=== PATIENT | male | born 1930 | race Two or more races ===

== ENCOUNTER 2020-02-04 10:06 | Inpatient (IN) | payer MEDICARE, OTHER ==
[~2020-02-04] VITALS: Ht 170.2 cm; Wt 70.8 kg
--- NOTE | 2020-02-04 10:20 | NUR ---
BIB ra 41 frm snf c/o more altered than normal. Patient a/ox1, opens eyes, agitated during care at times, breathing even and unlabored, no sob noted. A.fib heart rhythm on the monitor. Dr. Bullock aware.
--- NOTE | 2020-02-04 10:25 | NUR ---
Dr. Bullock at bedside for eval.
--- NOTE | 2020-02-04 10:30 | NUR ---
IV LINE ESTABLISHED, BLOOD DRAWN AND SENT TO LAB.
[2020-02-04 10:31] LABS: BASOPHILS % (AUTO) 0.6 % (0.0-2.0); EOSINOPHILS % (AUTO) 0.2 % (0.0-6.0); HEMATOCRIT 44 % (39-51); HEMOGLOBIN 14.8 g/dL (13.5-17.5); LYMPHOCYTES # (AUTO) 2.6 /CMM (0.8-4.8); LYMPHOCYTES % (AUTO) 41.8 % (20.0-44.0); MEAN CORPUSCULAR HGB CONC 34 g/dl (31.0-36.0); MEAN CORPUSCULAR VOLUME 95 fL (80-96); MONOCYTES # (AUTO) 0.5 /CMM (0.1-1.30); MONOCYTES % (AUTO) 7.6 % (2.0-12.0); NEUTROPHILS # (AUTO) 3.1 /CMM (1.8-8.9); NEUTROPHILS % (AUTO) 49.8 % (43.0-81.0); PLATELET COUNT (AUTO) 175 /CMM (150-450); RED BLOOD CELL COUNT(AUTO) 4.69 MIL/uL (4.5-6.0); WHITE BLOOD COUNT (AUTO) 6.1 K/uL (4.3-11.0)
[2020-02-04] MEDS ORDERED: POTA20TA83 PO (10:39)
[2020-02-04] MEDS ORDERED: BISA10SU61 RC (10:39)
[2020-02-04] MEDS ORDERED: MULT-447 PO (10:39)
[2020-02-04] MEDS ORDERED: METO-295 PO (10:39)
[2020-02-04] MEDS ORDERED: FURO-144 PO (10:39)
[2020-02-04] MEDS ORDERED: QUET25TA PO (10:39)
[2020-02-04] MEDS ORDERED: TAMS-12 PO (10:39)
[2020-02-04] MEDS ORDERED: ASCO500C17 PO (10:39)
[2020-02-04] MEDS ORDERED: ASPI-1169 PO (10:39)
[2020-02-04] MEDS ORDERED: NA P133E RC (10:39)
[2020-02-04] MEDS ORDERED: TUMERIC PO (10:39)
[2020-02-04] MEDS ORDERED: METO25TA6 PO (10:39)
[2020-02-04] MEDS ORDERED: APIX2.5T PO (10:39)
[2020-02-04] MEDS ORDERED: ALLO100T PO (10:39)
[2020-02-04] MEDS ORDERED: AMIN887L PO (10:39)
[2020-02-04] MEDS ORDERED: MAGN400O6 PO (10:39)
[2020-02-04 10:40] LABS: CALCIUM, SERUM 8.9 mg/dL (8.5-10.1); CREATININE 1.2 mg/dL (0.6-1.3)
[2020-02-04 10:46] LABS: BILIRUBIN,DIRECT 4.3 mg/dL (0.0-0.2); BILIRUBIN,TOTAL 5.5 mg/dL (0.2-1.0); TOTAL PROTEIN, SERUM 6.1 g/dL (6.4-8.2)
--- NOTE | 2020-02-04 10:55 | NUR ---
URINE OBTAINED VIA STRAIGHT CATHETER, SAMPLE AND COVID SWAB SENT TO LAB.
[2020-02-04] MEDS ORDERED: IV NS 0.9% 1,000 ML BAG IV ONE (11:00)
[2020-02-04] MEDS ORDERED: DILTIAZEM HCL 25 MG IV IV ONE (11:00)
[2020-02-04 11:03] LABS: BILIRUBIN,URINE MODERATE (NEGATIVE); BLOOD, URINE Trace-lysed Ery/uL (NEGATIVE); COLOR,URINE YELLOW (YELLOW); LEUKOCYTE ESTERASE ,URINE Negative (NEGATIVE); NITRITE, URINE Negative (NEGATIVE); PROTEIN,URINE Negative (NEGATIVE); UGLUCOSE Negative (NEGATIVE)
--- NOTE | 2020-02-04 11:03 | NUR ---
CALLED NURSING SUP FOR TELE BED.
[2020-02-04 11:12] LABS: B-TYPE NATRIURETIC PEPTIDE 9321 PG/ML (0-125)
--- NOTE | 2020-02-04 11:25 | NUR ---
call from lab, covid positive
[2020-02-04 11:28] LABS: BACTERIA,URINE Few /HPF (None Seen); RBC,URINE 0-3 /HPF (0-2); SQUAMOUS EPITHELIAL CELL,UR Moderate /HPF (None Seen); WBC,URINE 0-2 /HPF (0-3)
[2020-02-04] MEDS ORDERED: DILTIAZEM HCL 25 MG IV ONE (11:38)
[2020-02-04] MEDS ORDERED: DEXAMETHASONE SOD PHOSPHATE 10 MG/ML VIAL ONE (11:38)
[2020-02-04 11:53] LABS: SERUM AMMONIA 7 umol/L (11-32)
[2020-02-04] MEDS ORDERED: DEXAMETHASONE SOD PHOSPHATE 10 MG/ML VIAL IV ONE (12:00)
[2020-02-04] MEDS ORDERED: AZITHROMYCIN 500 MG in IV D5W 250 ML IV ONE (12:00)
--- NOTE | 2020-02-04 12:38 | NUR ---
COVID SWAB SENT.
[2020-02-04] MEDS ORDERED: MORPHINE SULFATE INJ 2 MG/ML DISP.SYRIN IV PRN (14:00)
[2020-02-04] MEDS ORDERED: MAGNESIUM HYDROXIDE 30 ML UDC PO PRN (14:00)
[2020-02-04] MEDS ORDERED: Z GUARD REMEDY 2 OZ OINT TP PRN (14:00)
[2020-02-04] MEDS ORDERED: ONDANSETRON HCL/PF 4 MG/2 ML VIAL IVP PRN (14:00)
[2020-02-04] MEDS ORDERED: MAG HYDROX/AL HYDROX/SIMETH 30 ML UDC PO PRN (14:00)
[2020-02-04] MEDS ORDERED: HYDROCODONE/APAP 5/325MG TABLET PO PRN (14:00)
[2020-02-04] MEDS ORDERED: ACETAMINOPHEN 325 MG TABLET PO PRN (14:00)
--- NOTE | 2020-02-04 15:58 | NUR ---
report given to radha mckinney. Addendum: 02/04/20 at 1633 by ROEL correction: RICHARD MCKINNEY.
--- NOTE | 2020-02-04 16:33 | NUR ---
patient transferred to room 117-1 via acls protocol. No distress noted. Needs attended.
--- NOTE | 2020-02-04 16:45 | NUR ---
DIRECTOR REPORT NOTE PT RECEIVED IN STABLE CONDITION, BUT OBTUNDED. PT IS COVID POSITIVE RAPID, PCR PENDING. PT OPENS EYES TO TACTILE STIMULI. PT ON NC 2LPM SPO2 99%, NO SIGNS OF RESP DISTRESS OR SOB, BREATHING UNLABORED AND EVEN. PT HAS RT AC #18 FLUSHED AND PATENT. PT ON TELEMONITOR READING AFIB WITH HR IN THE 130s. PT SAFETY MEASURES IN PLACE- BED LOCKED AND IN LOWEST POSITION, SR UP x2, BED ALARM ON, CALL LIGHT WITHIN REACH
--- NOTE | 2020-02-04 16:45 | NUR ---
RN NOTE SPOKE TO PT'S SON REGARDING PT'S STATUS. ANSWERED ALL QUESTIONS FOR SON TO HIS SATISFACTION.
[2020-02-04] MEDS ORDERED: METOPROLOL TARTRATE 25 MG TABLET PO SCH (17:00)
[2020-02-04] MEDS: APIXABAN 2.5 MG TABLET PO SCH (17:27)
--- NOTE | 2020-02-04 19:00 | NUR ---
RN CLOSING NOTE NO CHANGES TO PT STATUS. PT IS STABLE. SAFETY MEASURES IN PLACE. WILL ENDORSE RULA TO ONCOMING NURSE
[2020-02-04 20:00] VITALS: BP 115/82
--- NOTE | 2020-02-04 20:00 | NUR ---
FELT PULLER NOTES RECEIVED PATIENT IN BED ALERT ORIENTED X2. ON O2 VIA NC AT 4LPM SATING AT 98%. NO SIGNS OF DISTRESS NOTED. COUGH NOTED. ON TELE MONITOR, AFIB HR 130S. BODY CHECKED DONE, SKIN INTACT, NOTED WITH PITTING EDEMA + 4 ON LEFT FOOT, ELEVATED WITH PILLOW. RIGHT AC G18 PATENT AND INTACT, FLUSHED WITH NS NO SIGNS OF INFILTRATION, NO INFECTION NOTED. ALL SAFETY MEASURES IMPLEMENTED PER PROTOCOL, SIDE RAILS UP X 3. BED LOCKED IN LOWEST POSITION. CALL LIGHT WITHIN REACH.
[2020-02-04] MEDS: TAMSULOSIN 0.4 MG CAP.SR.24H PO SCH (22:23)
[2020-02-04] MEDS: IV NS 0.9% 1,000 ML IV PRN (22:25)
[2020-02-05] VITALS: BP 90/59
[2020-02-05 04:00] VITALS: BP 100/69
--- NOTE | 2020-02-05 06:45 | NUR ---
SERVICE ASSISTANT NOTES PATIENT IN BED SLEEPING, EASILY AROUSABLE BY VERBAL AND TOUCH STIMULI. NOT IN ANY ACUTE DISTRESS. CONTINUE ON O2 VIA NC AT 4LPM SATING AT 97%. NO SOB NOTED.ON TELE MONITOR SHOWING AFIB, HR 130S.. IVF NS INFUSING WELL, RUNNING AT 100 ML/HR. NO SIGNS OF INFILTRATION. REPOSITIONED Q2H. BOTH HEELS OFFLOADED WITH PILLOW. ALL SAFETY MEASURES IMPLEMENTED PER PROTOCOL, BED LOCKED IN LOWEST POSITION. SIDE RAILS UP X 3. CALL LIGHT WITHIN REACH AT ALL TIMES. WILL ENDORSE TO AM SHIFT NURSE FOR RULA
[2020-02-05 06:53] LABS: BASOPHILS % (AUTO) 0.2 % (0.0-2.0); HEMATOCRIT 43 % (39-51); HEMOGLOBIN 14.3 g/dL (13.5-17.5); LYMPHOCYTES # (AUTO) 1.5 /CMM (0.8-4.8); MEAN CORPUSCULAR HGB CONC 33 g/dl (31.0-36.0); MEAN CORPUSCULAR VOLUME 95 fL (80-96); MONOCYTES # (AUTO) 0.2 /CMM (0.1-1.30); MONOCYTES % (AUTO) 4.4 % (2.0-12.0); NEUTROPHILS # (AUTO) 2.1 /CMM (1.8-8.9); NEUTROPHILS % (AUTO) 56.4 % (43.0-81.0); PLATELET COUNT (AUTO) 176 /CMM (150-450); RED BLOOD CELL COUNT(AUTO) 4.55 MIL/uL (4.5-6.0); WHITE BLOOD COUNT (AUTO) 3.8 K/uL (4.3-11.0)
[2020-02-05 07:07] LABS: ALANINE AMINOTRANSFERASE 50 U/L (12-78); ALBUMIN 1.7 g/dL (3.4-5.0); ALKALINE PHOSPHATASE 298 U/L (46-116); ASPARTATE AMINOTRANSFERASE 46 U/L (15-37); BILIRUBIN,TOTAL 3.2 mg/dL (0.2-1.0); CALCIUM, SERUM 7.9 mg/dL (8.5-10.1); CARBON DIOXIDE 21 mmol/L (21-32); CHLORIDE 107 mmol/L (98-107); CREATININE 1.2 mg/dL (0.6-1.3); GLUCOSE 136 mg/dL (74-106); MAGNESIUM 2.3 mg/dL (1.8-2.4); POTASSIUM 4.5 mmol/L (3.5-5.1); SODIUM SERUM 141 mmol/L (136-145); TOTAL PROTEIN, SERUM 5.5 g/dL (6.4-8.2); UREA NITROGEN, BLOOD 35 mg/dL (7-18)
[2020-02-05 07:27] LABS: CHOLESTEROL 142 mg/dL (<200); LDL 108 mg/dL (0-99); TRIGLYCERIDES 137 mg/dL (30-150)
--- NOTE | 2020-02-05 07:30 | NUR ---
RN OPENING NOTE PT AWAKE IN BED ON NC 4LPM, NO SIGNS OF RESP DISTRESS OR SOB, BREATHING UNLABORED AND EVEN. PT HAS A DIAPER IN PLACE AND IS CURRENTLY CLEAN. PT HAS RT AC #18 PATENT AND INFUSING NS AT THIS TIME. NO SIGNS OF INFILTRATION OR INFECTION. PT IS A LITTLE HOSTILE AND PER SCOW HAND RN, WAS NOT COMPLIANT WITH ALL HIS TREATMENTS. PT SAFETY PRECAUTION IN PLACE, BED LOCKED AND IN LOWEST POSITION, BED ALARM ON, CALL LIGHT WITHIN REACH, SR UP x2. WILL CONTINUE TO MONITOR
[2020-02-05 08:00] LABS: HDL CHOLESTEROL < 10 mg/dL (40-60)
--- NOTE | 2020-02-05 08:00 | NUR ---
RN NOTE PT'S SONS CALLED AND SPOKE WITH PT. PER PT'S SONS PT STATES NO PAIN OR DISCOMFORT. SONS TRIED TO TELL PT TO COMPLY WITH TREATMENTS AND STAFF PT HAS BEEN REFUSING VITALS AND OTHER TREATMENTS. WILL CONTINUE TO MONITOR
--- NOTE | 2020-02-05 08:05 | NUR ---
RN NOTE PT REFUSED VITAL SIGNS Addendum: 02/05/20 at 1937 by WYATT NGUYEN RN edited vital signs (long form) to show pt refused vitals at 0800; continued VS entries starting at 1200
[2020-02-05] MEDS: ALLOPURINOL 100 MG TABLET PO SCH (09:32)
[2020-02-05] MEDS: ASPIRIN 81 MG TAB.CHEW PO SCH (09:32)
[2020-02-05] MEDS: IV NS 0.9% 1,000 ML IV PRN ×2 (09:32→20:16)
[2020-02-05] MEDS: APIXABAN 2.5 MG TABLET PO SCH ×2 (09:35→18:14)
[2020-02-05 12:00] VITALS: BP 89/67
--- NOTE | 2020-02-05 12:00 | NUR ---
RN NOTE PT ALLOWED VITALS TO BE TAKEN, BUT REFUSING TO EAT
[2020-02-05] MEDS: DEXAMETHASONE SOD PHOSPHATE 10 MG/ML VIAL IV SCH (12:49)
[2020-02-05] MEDS: DIGOXIN INJ 0.5 MG/2 ML AMPUL IV SCH ×3 (12:50→23:20)
[2020-02-05 16:00] VITALS: BP 87/64
--- NOTE | 2020-02-05 17:00 | NUR ---
RN NOTE PT DIET CHANGED TO PUREED, PT ATE 1/2 OF DINNER
[2020-02-05] MEDS: METOPROLOL TARTRATE 25 MG TABLET PO SCH (18:25)
--- NOTE | 2020-02-05 19:00 | NUR ---
RN CLOSING NOTE PT IN STABLE CONDITION, A/Ox2 AND IS MORE COOPERATIVE WITH CARE THAN EARLY ON IN THE SHIFT. PT ON TELE AFIB, PT ON NC 4LPM NO SIGNS OF RESP DISTRESS OR SOB, BREATHING UNLABORED AND EVEN. RT AC IV SITE INFUSING WELL. NO CHANGES TO PT STATUS. PT SAFETY PRECAUTIONS IN PLACE, BED LOCKED AND IN LOWEST POSITION, SR UP x2, CALL LIGHT WITHIN REACH, BED ALARM IS ON. WILL ENDORSE RUAL TO ONCOMING NURSE
--- NOTE | 2020-02-05 19:45 | NUR ---
RN NOTE RECEIVED PATIENT IN BED SLEEPING, EASILY AROUSABLE BY VERBAL AND TOUCH STIMULI, QUITE IRRITABLE. ON O2 VIA NC AT 4LPM, SATURATION AT 100 %. NO SOB NOTED. ON TELE MONITOR, SHOWING AFIB HR 72. NO SIGNS OF PAIN OR DISCOMFORT. IV ON RIGHT AC PATENT AND INTACT, NS RUNNING AT 100ML/HR. CALL LIGHT WITHIN REACH, BED LOCKED IN LOWEST POSITION. SIDE RAILS UP X 2.
[2020-02-05 20:00] VITALS: BP 95/53
--- NOTE | 2020-02-05 21:19 | NUR ---
COVID + PER LAB, FAYE VALADEZ.
[2020-02-05] MEDS: TAMSULOSIN 0.4 MG CAP.SR.24H PO SCH (21:36)
[2020-02-06] VITALS: BP 101/63
[2020-02-06 04:00] VITALS: BP 97/61
[2020-02-06] MEDS: IV NS 0.9% 1,000 ML IV PRN (06:25)
--- NOTE | 2020-02-06 06:29 | NUR ---
RN CLOSING NOTE PT IN BED STABLE CONDITION, A/Ox2 AND IS MORE AWAKE . PT ON TELE AFIB 62 SATING !00% PT ON NC 4LPM NO SIGNS OF RESP DISTRESS OR SOB, BREATHING UNLABORED AND EVEN. RT AC IV SITE NS AT 100CC/HR INFUSING WELL. NO CHANGES TO PT STATUS. PT SAFETY PRECAUTIONS IN PLACE, BED LOCKED AND IN LOWEST POSITION, SR UP x2, CALL LIGHT WITHIN REACH, BED ALARM IS ON. WILL ENDORSE TO RN DAY SHIFT FOR RULA TO INCOMING NURSE,KEPT PTS CLEAN DRY AND COMFORTABLE.
--- NOTE | 2020-02-06 07:30 | NUR ---
TURBINE INSPECTOR CLOSING NOTE PT IN BED STABLE CONDITION, ON 4 L O2 NASAL CANULA. A/Ox2 AND IS MORE AWAKE. PT ON TELE AFIB 72 SATING 100%. DENIES SOB, NOT IN ANY DISTRESS, RT AC G 18 IV SITE NS AT 100CC/HR INFUSING WELL, SITE CLEAR. PUREE DIET, PT SAFETY PRECAUTIONS IN PLACE, BED LOCKED AND IN LOWEST POSITION, SR UP x2, CALL LIGHT WITHIN REACH, WILL CONT TO MONITOR.
[2020-02-06 07:32] LABS: BASOPHILS % (AUTO) 0.1 % (0.0-2.0); HEMATOCRIT 45 % (39-51); HEMOGLOBIN 14.6 g/dL (13.5-17.5); LYMPHOCYTES # (AUTO) 1.4 /CMM (0.8-4.8); LYMPHOCYTES % (AUTO) 36.4 % (20.0-44.0); MEAN CORPUSCULAR HGB CONC 33 g/dl (31.0-36.0); MEAN CORPUSCULAR VOLUME 95 fL (80-96); MONOCYTES # (AUTO) 0.2 /CMM (0.1-1.30); NEUTROPHILS # (AUTO) 2.3 /CMM (1.8-8.9); NEUTROPHILS % (AUTO) 58.5 % (43.0-81.0); PLATELET COUNT (AUTO) 174 /CMM (150-450); WHITE BLOOD COUNT (AUTO) 3.9 K/uL (4.3-11.0)
[2020-02-06 07:55] LABS: T4 (THYROXINE) 5.1 ug/dL (4.7-13.3)
[2020-02-06 07:56] LABS: CALCIUM, SERUM 7.9 mg/dL (8.5-10.1); CREATININE 1.3 mg/dL (0.6-1.3); POTASSIUM 4.9 mmol/L (3.5-5.1)
[2020-02-06 08:00] VITALS: BP 126/75
--- NOTE | 2020-02-06 09:30 | NUR ---
JET MECHANIC NOTES DUE MEDS GIVEN.
[2020-02-06] MEDS: ALLOPURINOL 100 MG TABLET PO SCH (09:33)
[2020-02-06] MEDS: ASPIRIN 81 MG TAB.CHEW PO SCH (09:33)
[2020-02-06] MEDS: DEXAMETHASONE SOD PHOSPHATE 10 MG/ML VIAL IV SCH (09:33)
[2020-02-06] MEDS: METOPROLOL TARTRATE 25 MG TABLET PO SCH ×2 (09:33→17:24)
[2020-02-06] MEDS: APIXABAN 2.5 MG TABLET PO SCH ×2 (09:34→17:25)
[2020-02-06 12:00] VITALS: BP 89/59
[2020-02-06 16:00] VITALS: BP 100/62
--- NOTE | 2020-02-06 18:33 | NUR ---
ICER AIR CONDITIONING CLOSING NOTE PT IN BED STABLE CONDITION, RESTING, ON 4 L O2 NASAL CANULA. A/Ox2 AND IS MORE AWAKE. PT ON TELE AFIB HR 63 SATING 100%. DENIES SOB, NOT IN ANY DISTRESS, RT AC G 18 IV SITE NS AT TKO. SITE CLEAR. PUREE DIET, ASSISTED IN TURNING AND REPOSITIONING Q 2 HOURS. PM CARE DONE EARLIER. PT SAFETY PRECAUTIONS IN PLACE, BED LOCKED AND IN LOWEST POSITION, SR UP x2, CALL LIGHT WITHIN REACH, ALL NEEDS MET. WILL ENDORSE TO NEXT SHIFT FOR RULA.
--- NOTE | 2020-02-06 19:41 | NUR ---
DOBIE WORKER OPENING NOTES PATIENT RECEIVED RESTING IN BED COMFORTABLY; A/OX2, BREATHING EVEN AND UNLABORED; TOLERATING 4LPM VIA NC WELL; TELE MONITOR READS CONTROLLED AFIB 77BPM; R AC #18 INTACT AND PATENT, TOLERATING IVF WELL; ISOLATION PRECAUTIONS MAINTAINED; SAFETY PRECAUTIONS IMPLEMENTED; BED LOCKED IN LOW POSITION; SIDE RAILSX2; CALL LIGHT WITHIN REACH; WILL CONT TO MONITOR
[2020-02-06 20:00] VITALS: BP 99/69
[2020-02-06] MEDS: TAMSULOSIN 0.4 MG CAP.SR.24H PO SCH (21:46)
[2020-02-07] VITALS: BP 100/69
[2020-02-07 04:00] VITALS: BP 120/73
--- NOTE | 2020-02-07 05:38 | NUR ---
VEHICLE COST ENGINEER NOTES SWIM INSTRUCTOR AT BEDSIDE, PATIENT REFUSING LAB WORK; PATIENT SCREAMING AT SWIM INSTRUCTOR, PATIENT WITHDRAWING TO TOUCH; WILL INFORM DAY SHIFT; WILL CONT TO MONITOR
--- NOTE | 2020-02-07 06:47 | NUR ---
SAFE TECHNICIAN CLOSING NOTES PATIENT RESTING IN BED COMFORTABLY; A/OX2, BREATHING EVEN AND UNLABORED; TOLERATING 4LPM VIA NC WELL; NO SOB NOTED; NO DISTRESS NOTED; TELE MONITOR READS CONTROLLED A.FIB; ISOLATION PRECAUTIONS MAINTAINED; SAFETY PRECAUTIONS IMPLEMENTED; ALL NEEDS RENDERED; WILL ENDORSE RULA TO ONCOMING SHIFT
--- NOTE | 2020-02-07 07:44 | NUR ---
CREATIVE SERVICES COORDINATOR OPENING NOTES RECEIVED PATIENT IN BED, ASLEEP. PATIENT ON OXYGEN THERAPY AT 4 LMP VIA NASAL CANNULA; BREATHING EVEN AND UNLABORED AT THIS TIME. NO S/S OF PAIN SUCH FACIAL GRIMACING, MOANING OR GUARDING NOTED. TELE MONITOR WITH A CURRENT READING OF CONTROLLED A-FIB 62 BPM. RAC G #18 IV ACCESS PRESENT AND INTACT INFUSING NS AT 100 MLS/HR. SAFETY PRECAUTIONS IN PLACE; BED IN LOW POSITION AND LOCKED, RAILS UP X2, CALL LIGHT WITHIN REACH. WILL CONTINUE TO MONITOR PATIENT.
[2020-02-07 08:03] VITALS: BP 112/73
[2020-02-07] MEDS: METOPROLOL TARTRATE 25 MG TABLET PO SCH (09:00)
[2020-02-07] MEDS: ALLOPURINOL 100 MG TABLET PO SCH (09:17)
[2020-02-07] MEDS: DEXAMETHASONE SOD PHOSPHATE 10 MG/ML VIAL IV SCH (09:17)
[2020-02-07] MEDS: ASPIRIN 81 MG TAB.CHEW PO SCH (09:17)
[2020-02-07] MEDS: APIXABAN 2.5 MG TABLET PO SCH (09:19)
[2020-02-07] MEDS ORDERED: DEXA10VI2 PO (09:58)
[2020-02-07 12:00] VITALS: BP 117/68
--- NOTE | 2020-02-07 13:26 | NUR ---
NATURAL GAS PLANT TECHNICIAN NOTES PATIENT REMOVED HIS TELE BOX AND HIS IV CAUSING A SKIN TEAR AT [place]. REFUSES RE-INSERTION OF IV AND PLACEMENT OF TELE BOX.
--- NOTE | 2020-02-07 15:20 | NUR ---
GROUND CONTROL APPROACH TECHNICIANPROFESSOR OF LITERATURE NOTES PATIENT DISCHARGED TO SNF IN MEDICALLY STABLE CONDITION. VITAL SIGNS WITHIN NORMAL LIMITS; OXYGEN AT 4 LPM VIA NASAL CANNULA. ALL DISCHARGE PAPERWORK READY AND SIGNED BY 2 RNs DUE TO PATIENT BEING A/O X1 AND CONFUSED. PATIENT HAD NO BELONGINGS. FACILITY CALLED AND REPORT GIVEN TO RN. PATIENTS IV LINE WAS PULLED OUT BY THE PATIENT DURING SHIFT AND REFUSED RE-INSERTION. PATIENT WAS PICKED UP BY 2 outsole beveler AND LEFT THE UNIT AT 1520.
== END 2020-02-07 15:36 | DRG 177 ==
LOC: ER 10:07 → TELE1 15:56
PROVIDERS: ADMIT Nurse Practitioner Acute Care; ATTEND Nurse Practitioner Acute Care
DX: U07.1 COVID-19 (principal); J96.01 Acute respiratory failure with hypoxia; G93.41 Metabolic encephalopathy; E43 Unspecified severe protein-calorie malnutrition; N17.0 Acute kidney failure with tubular necrosis; I13.0 Hypertensive heart and chronic kidney disease with heart failure and stage 1 through stage 4 chronic kidney disease, or unspecified chronic kidney disease; R17 Unspecified jaundice; I50.9 Heart failure, unspecified; I48.0 Paroxysmal atrial fibrillation; I25.10 Atherosclerotic heart disease of native coronary artery without angina pectoris; N18.9 Chronic kidney disease, unspecified; Z95.1 Presence of aortocoronary bypass graft; Z79.01 Long term (current) use of anticoagulants; N40.0 Benign prostatic hyperplasia without lower urinary tract symptoms; F29 Unspecified psychosis not due to a substance or known physiological condition; R74.01 Elevation of levels of liver transaminase levels; E88.09 Other disorders of plasma-protein metabolism, not elsewhere classified; K74.60 Unspecified cirrhosis of liver; R53.1 Weakness
CPT/HCPCS: 36415; 70450-TC; 71045-TC; 76700-TC; 80048-TC; 80053-TC; 80061-TC; 80076-TC; 81001; 82140-TC; 83690-TC; 83735-TC; 83880; 84100-TC; 84436-TC; 84443-TC; 84481; 84484-TC; 85025-TC; 85378-TC; 85730-TC; 87040-TC; 87081-TC; 87086-TC; C9803; G0378; J0456; J1100; J1160; J3490; J7030; J7060; U0003

== ENCOUNTER 2020-03-19 11:56 | Inpatient (IN) | payer MEDICARE, OTHER ==
[~2020-03-19] VITALS: Ht 177.8 cm; Wt 78.0 kg
[~2020-03-19 11:56] MED LIST: ALLO100T PO; AMIN887L PO; APIX2.5T PO; ASCO500C17 PO; ASPI-1169 PO; BISA10SU61 RC; DEXA10VI2 PO; FURO-144 PO; MAGN400O6 PO; METO-295 PO; METO25TA6 PO; MULT-447 PO; NA P133E RC; POTA20TA83 PO; QUET25TA PO; TAMS-12 PO; TUMERIC PO
[2020-03-19] MEDS ORDERED: PIPERACILLIN /TAZOBACTAM 3.375 G in IV D5W 50 ML IV ONE (12:00)
[2020-03-19] MEDS ORDERED: VANCOMYCIN 1 GM in IV D5W 250 ML IV ONE (12:00)
[2020-03-19] MEDS ORDERED: ACETAMINOPHEN 650 MG/SUPP.RECT RC ONE ×2 (12:00→12:14)
[2020-03-19] MEDS ORDERED: IV NS 0.9% 1,000 ML BAG IV ONE (12:00)
[2020-03-19] MEDS ORDERED: DILTIAZEM HCL 25 MG IV ONE (12:15)
[2020-03-19] MEDS ORDERED: ASCO500T10 PO (12:28)
[2020-03-19] MEDS ORDERED: DILTIAZEM HCL 50 MG IV IV ONE (12:30)
[2020-03-19 13:07] LABS: BASOPHILS # (AUTO) 0.1 /CMM (0.0-0.2); BASOPHILS % (AUTO) 0.6 % (0.0-2.0); EOSINOPHILS % (AUTO) 0.1 % (0.0-6.0); HEMATOCRIT 30 % (39-51); HEMOGLOBIN 9.4 g/dL (13.5-17.5); LYMPHOCYTES # (AUTO) 1.1 /CMM (0.8-4.8); LYMPHOCYTES % (AUTO) 7.4 % (20.0-44.0); MEAN CORPUSCULAR HGB CONC 31 g/dl (31.0-36.0); MEAN CORPUSCULAR VOLUME 111 fL (80-96); MONOCYTES # (AUTO) 0.6 /CMM (0.1-1.30); MONOCYTES % (AUTO) 4.4 % (2.0-12.0); NEUTROPHILS # (AUTO) 12.5 /CMM (1.8-8.9); NEUTROPHILS % (AUTO) 87.5 % (43.0-81.0); PLATELET COUNT (AUTO) 316 /CMM (150-450); RED BLOOD CELL COUNT(AUTO) 2.67 MIL/uL (4.5-6.0); WHITE BLOOD COUNT (AUTO) 14.3 K/uL (4.3-11.0)
[2020-03-19 13:41] LABS: ALANINE AMINOTRANSFERASE 72 U/L (12-78); ALBUMIN 1.9 g/dL (3.4-5.0); ALKALINE PHOSPHATASE 519 U/L (46-116); ASPARTATE AMINOTRANSFERASE 133 U/L (15-37); BILIRUBIN,DIRECT 11.2 mg/dL (0.0-0.2); BILIRUBIN,TOTAL 12.2 mg/dL (0.2-1.0); CALCIUM, SERUM 8.6 mg/dL (8.5-10.1); CARBON DIOXIDE 23 mmol/L (21-32); CHLORIDE 105 mmol/L (98-107); CREATININE 1.2 mg/dL (0.6-1.3); GLUCOSE 109 mg/dL (74-106); POTASSIUM 4.8 mmol/L (3.5-5.1); SODIUM SERUM 142 mmol/L (136-145); TOTAL PROTEIN, SERUM 6.3 g/dL (6.4-8.2); UREA NITROGEN, BLOOD 35 mg/dL (7-18)
[2020-03-19 14:04] LABS: BAND % (MANUAL) 1 % (0.0-5.0); LYMPHOCYTES % (MANUAL) 4 % (16-48); MONOCYTES % (MANUAL) 2 % (0-11.0); NEUTROPHILS % (MANUAL) 93 (42-76)
[2020-03-19 14:43] LABS: BILIRUBIN,URINE LARGE (NEGATIVE); COLOR,URINE DARK YELLOW (YELLOW); LEUKOCYTE ESTERASE ,URINE TRACE (NEGATIVE); NITRITE, URINE POSITIVE (NEGATIVE); PROTEIN,URINE 30 mg/dl (NEGATIVE); UGLUCOSE 100 MG/DL mg/dL (NEGATIVE); UROBILINOGEN,URINE >=8.0 EU/dL (0.2)
[2020-03-19] MEDS ORDERED: ACETAMINOPHEN 325 MG TABLET PO PRN (15:00)
[2020-03-19] MEDS ORDERED: ONDANSETRON HCL/PF 4 MG/2 ML VIAL IVP PRN (15:00)
[2020-03-19] MEDS ORDERED: HYDROCODONE/APAP 5/325MG TABLET PO PRN (15:00)
[2020-03-19] MEDS ORDERED: Z GUARD REMEDY 2 OZ OINT TP PRN (15:00)
[2020-03-19 15:24] LABS: BACTERIA,URINE 1+ /HPF (None Seen); RBC,URINE 0-2 /HPF (0-2)
[2020-03-19 15:25] LABS: CALCIUM OXALATE CRYSTALS,UR Few /HPF (None Seen); URINE AMORPHOUS URATE Few /HPF (None Seen)
[2020-03-19] MEDS ORDERED: QUETIAPINE FUMARATE 25 MG TABLET PO SCH (17:00)
[2020-03-19] MEDS ORDERED: QUETIAPINE FUMARATE 25 MG TABLET ONE (18:11)
[2020-03-19] MEDS ORDERED: METOPROLOL TARTRATE 25 MG TABLET ONE (19:35)
[2020-03-19] MEDS: METOPROLOL TARTRATE 25 MG TABLET PO SCH (19:42)
[2020-03-19] MEDS ORDERED: FOLIC ACID 1 MG TABLET ONE (20:19)
[2020-03-19] MEDS: IV NS 0.9% 1,000 ML IV PRN (20:25)
[2020-03-19] MEDS: FOLIC ACID 1 MG TABLET PO SCH (20:28)
[2020-03-19] MEDS ORDERED: IV NS 0.9% 1,000 ML IV ONE (20:30)
[2020-03-19] MEDS ORDERED: PHENYLEPHRINE 50 MG in IV NS 0.9% 245 ML IV PRN (20:30)
[2020-03-19] MEDS: APIXABAN 2.5 MG TABLET PO SCH (20:43)
[2020-03-19] MEDS ORDERED: PIPERACILLIN /TAZOBACTAM 3.375 G VIAL IV ONE (21:08)
[2020-03-19] MEDS: PIPERACILLIN /TAZOBACTAM 3.375 G in IV D5W 50 ML IV SCH (21:10)
[2020-03-19] MEDS ORDERED: TAMSULOSIN 0.4 MG CAP.SR.24H ONE (21:56)
[2020-03-19] MEDS: TAMSULOSIN 0.4 MG CAP.SR.24H PO SCH (22:00)
[2020-03-19] MEDS ORDERED: ZOLPIDEM TARTRATE 5 MG TABLET PO PRN (22:00)
[2020-03-20] MEDS ORDERED: PIPERACILLIN /TAZOBACTAM 3.375 G VIAL IV ONE (03:01)
[2020-03-20] MEDS: PIPERACILLIN /TAZOBACTAM 3.375 G in IV D5W 50 ML IV SCH ×4 (03:10→21:30)
[2020-03-20 05:37] LABS: BASOPHILS % (AUTO) 0.1 % (0.0-2.0); EOSINOPHILS % (AUTO) 0.1 % (0.0-6.0); HEMATOCRIT 25 % (39-51); HEMOGLOBIN 8.1 g/dL (13.5-17.5); LYMPHOCYTES # (AUTO) 1.1 /CMM (0.8-4.8); LYMPHOCYTES % (AUTO) 13.6 % (20.0-44.0); MEAN CORPUSCULAR HGB CONC 32 g/dl (31.0-36.0); MEAN CORPUSCULAR VOLUME 111 fL (80-96); MONOCYTES # (AUTO) 0.4 /CMM (0.1-1.30); MONOCYTES % (AUTO) 4.4 % (2.0-12.0); NEUTROPHILS # (AUTO) 6.9 /CMM (1.8-8.9); NEUTROPHILS % (AUTO) 81.8 % (43.0-81.0); PLATELET COUNT (AUTO) 196 /CMM (150-450); RED BLOOD CELL COUNT(AUTO) 2.25 MIL/uL (4.5-6.0); WHITE BLOOD COUNT (AUTO) 8.4 K/uL (4.3-11.0)
[2020-03-20 05:56] LABS: CALCIUM, SERUM 7.7 mg/dL (8.5-10.1); CARBON DIOXIDE 24 mmol/L (21-32); CHLORIDE 108 mmol/L (98-107); CREATININE 1.2 mg/dL (0.6-1.3); GLUCOSE 94 mg/dL (74-106); MAGNESIUM 2.1 mg/dL (1.8-2.4); PHOSPHORUS 4.1 mg/dL (2.5-4.9); POTASSIUM 4.5 mmol/L (3.5-5.1); SODIUM SERUM 142 mmol/L (136-145); UREA NITROGEN, BLOOD 36 mg/dL (7-18)
[2020-03-20] MEDS: VANCOMYCIN 1 GM in IV D5W 250 ML IV SCH (06:15)
[2020-03-20 06:18] LABS: CHOLESTEROL 88 mg/dL (<200); LDL 72 mg/dL (0-99); TRIGLYCERIDES 121 mg/dL (30-150)
[2020-03-20 07:03] LABS: HDL CHOLESTEROL < 10 mg/dL (40-60)
[2020-03-20] MEDS ORDERED: METOPROLOL TARTRATE 25 MG TABLET ONE (08:26)
[2020-03-20] MEDS: APIXABAN 2.5 MG TABLET PO SCH ×2 (08:42→17:01)
[2020-03-20] MEDS: FOLIC ACID 1 MG TABLET PO SCH (08:42)
[2020-03-20] MEDS: ASCORBIC ACID 500 MG TABLET PO SCH (08:43)
[2020-03-20] MEDS: ALLOPURINOL 100 MG TABLET PO SCH (08:43)
[2020-03-20] MEDS: METOPROLOL TARTRATE 25 MG TABLET PO SCH ×3 (08:43→17:02)
[2020-03-20] MEDS: MULTIVIT W/MINERALS 1 TAB TABLET PO SCH (08:43)
[2020-03-20] MEDS ORDERED: QUETIAPINE FUMARATE 25 MG TABLET PO SCH (09:00)
[2020-03-20] MEDS: PHENYLEPHRINE 50 MG in IV NS 0.9% 245 ML IV PRN ×2 (09:52→18:39)
[2020-03-20 10:34] LABS: THYROID STIMULATING HORMONE 0.905 uIU/mL (0.358-3.74)
[2020-03-20] MEDS ORDERED: DIGOXIN INJ 0.5 MG/2 ML AMPUL ONE (11:54)
[2020-03-20] MEDS: DIGOXIN INJ 0.5 MG/2 ML AMPUL IV SCH ×2 (12:07→18:01)
[2020-03-20] MEDS: IV NS 0.9% 1,000 ML IV PRN (13:06)
[2020-03-20 19:00] VITALS: BP 109/60
[2020-03-20 20:00] VITALS: BP 97/32
[2020-03-20 21:00] VITALS: BP 113/68
[2020-03-20 22:00] VITALS: BP 110/71
[2020-03-20] MEDS: TAMSULOSIN 0.4 MG CAP.SR.24H PO SCH (22:00)
[2020-03-20] MEDS: DEXAMETHASONE SOD PHOSPHATE 4 MG/ML VIAL IV SCH (22:10)
[2020-03-20 23:00] VITALS: BP 98/64
[2020-03-21] VITALS (69 sets, daily range): BP systolic 70–191; BP diastolic 32–125
[2020-03-21] MEDS: DIGOXIN INJ 0.5 MG/2 ML AMPUL IV SCH (00:19)
[2020-03-21] MEDS ORDERED: VANCOMYCIN 1 GM VIAL ONE (00:33)
[2020-03-21] MEDS: VANCOMYCIN 1 GM in IV D5W 250 ML IV SCH (00:52)
[2020-03-21] MEDS: PHENYLEPHRINE 50 MG in IV NS 0.9% 245 ML IV PRN ×3 (00:53→16:30)
[2020-03-21] MEDS: PIPERACILLIN /TAZOBACTAM 3.375 G in IV D5W 50 ML IV SCH ×4 (03:30→21:53)
[2020-03-21 04:20] LABS: BASOPHILS % (AUTO) 0.3 % (0.0-2.0); EOSINOPHILS % (AUTO) 0.1 % (0.0-6.0); HEMATOCRIT 30 % (39-51); HEMOGLOBIN 9.6 g/dL (13.5-17.5); LYMPHOCYTES # (AUTO) 0.5 /CMM (0.8-4.8); LYMPHOCYTES % (AUTO) 6.9 % (20.0-44.0); MEAN CORPUSCULAR HGB CONC 32 g/dl (31.0-36.0); MEAN CORPUSCULAR VOLUME 110 fL (80-96); MONOCYTES # (AUTO) 0.1 /CMM (0.1-1.30); MONOCYTES % (AUTO) 1.1 % (2.0-12.0); NEUTROPHILS # (AUTO) 6.5 /CMM (1.8-8.9); NEUTROPHILS % (AUTO) 91.6 % (43.0-81.0); PLATELET COUNT (AUTO) 302 /CMM (150-450); RED BLOOD CELL COUNT(AUTO) 2.68 MIL/uL (4.5-6.0); WHITE BLOOD COUNT (AUTO) 7.1 K/uL (4.3-11.0)
[2020-03-21 04:33] LABS: ALBUMIN 1.6 g/dL (3.4-5.0); BILIRUBIN,TOTAL 6.3 mg/dL (0.2-1.0); CALCIUM, SERUM 7.8 mg/dL (8.5-10.1); CREATININE 1.1 mg/dL (0.6-1.3); MAGNESIUM 2.2 mg/dL (1.8-2.4); PHOSPHORUS 3.2 mg/dL (2.5-4.9); POTASSIUM 3.8 mmol/L (3.5-5.1); TOTAL PROTEIN, SERUM 5.8 g/dL (6.4-8.2)
[2020-03-21] MEDS: IV NS 0.9% 1,000 ML IV PRN (07:45)
[2020-03-21] MEDS: DEXAMETHASONE SOD PHOSPHATE 4 MG/ML VIAL IV SCH (09:15)
[2020-03-21] MEDS: ALLOPURINOL 100 MG TABLET PO SCH (09:15)
[2020-03-21] MEDS: MULTIVIT W/MINERALS 1 TAB TABLET PO SCH (09:15)
[2020-03-21] MEDS: ASCORBIC ACID 500 MG TABLET PO SCH (09:15)
[2020-03-21] MEDS: FOLIC ACID 1 MG TABLET PO SCH (09:15)
[2020-03-21] MEDS: APIXABAN 2.5 MG TABLET PO SCH ×2 (09:24→16:27)
[2020-03-21] MEDS: HYDROCORTISONE SOD SUCCINATE 100 MG/2 ML VIAL IV SCH ×3 (09:25→21:52)
[2020-03-21] MEDS ORDERED: DIGOXIN 0.125 MG TABLET PO SCH (13:00)
[2020-03-21] MEDS: TAMSULOSIN 0.4 MG CAP.SR.24H PO SCH (21:53)
[2020-03-22] VITALS (38 sets, daily range): BP systolic 82–156; BP diastolic 32–97
[2020-03-22] MEDS: IV NS 0.9% 1,000 ML IV PRN ×2 (00:22→17:34)
[2020-03-22] MEDS: PHENYLEPHRINE 50 MG in IV NS 0.9% 245 ML IV PRN ×3 (02:47→17:38)
[2020-03-22] MEDS: PIPERACILLIN /TAZOBACTAM 3.375 G in IV D5W 50 ML IV SCH ×4 (02:50→21:25)
[2020-03-22] MEDS ORDERED: HYDROCORTISONE SOD SUCCINATE 100 MG/2 ML VIAL ONE (05:55)
[2020-03-22] MEDS: HYDROCORTISONE SOD SUCCINATE 100 MG/2 ML VIAL IV SCH ×3 (06:03→21:25)
[2020-03-22 07:30] LABS: CALCIUM, SERUM 7.7 mg/dL (8.5-10.1); POTASSIUM 3.1 mmol/L (3.5-5.1)
[2020-03-22] MEDS: FOLIC ACID 1 MG TABLET PO SCH (08:11)
[2020-03-22] MEDS: ALLOPURINOL 100 MG TABLET PO SCH (08:11)
[2020-03-22] MEDS: DEXAMETHASONE SOD PHOSPHATE 4 MG/ML VIAL IV SCH (08:11)
[2020-03-22] MEDS: MULTIVIT W/MINERALS 1 TAB TABLET PO SCH (08:11)
[2020-03-22] MEDS: ASCORBIC ACID 500 MG TABLET PO SCH (08:11)
[2020-03-22] MEDS: APIXABAN 2.5 MG TABLET PO SCH ×2 (08:13→17:09)
[2020-03-22] MEDS ORDERED: POTASSIUM CHLORIDE 20 MEQ TAB.PRT.SR PO ONE (09:30)
[2020-03-22] MEDS: POTASSIUM CHLORIDE 20 MEQ POWDER PACKET PO SCH ×2 (11:43→12:31)
[2020-03-22 17:00] LABS: CREATININE, URINE 85.6 MG/DL (30.0-125.0); URINE TOTAL PROTEIN 54.3 mg/dL (0-11.9)
[2020-03-22 18:30] LABS: BILIRUBIN,URINE SMALL (NEGATIVE); COLOR,URINE YELLOW (YELLOW); LEUKOCYTE ESTERASE ,URINE TRACE (NEGATIVE); NITRITE, URINE NEGATIVE (NEGATIVE); PROTEIN,URINE TRACE mg/dl (NEGATIVE); UGLUCOSE NEGATIVE (NEGATIVE)
[2020-03-22 18:56] LABS: BACTERIA,URINE Few /HPF (None Seen); RBC,URINE 21-50 /HPF (0-2); SQUAMOUS EPITHELIAL CELL,UR Few /HPF (None Seen)
[2020-03-22] MEDS: TAMSULOSIN 0.4 MG CAP.SR.24H PO SCH (21:25)
[2020-03-23] VITALS (70 sets, daily range): BP systolic 97–150; BP diastolic 52–86
[2020-03-23 01:05] LABS: EOSINOPHIL,URINE None Seen
[2020-03-23] MEDS: PIPERACILLIN /TAZOBACTAM 3.375 G in IV D5W 50 ML IV SCH ×2 (03:03→08:13)
[2020-03-23] MEDS: PHENYLEPHRINE 50 MG in IV NS 0.9% 245 ML IV PRN ×2 (04:45→15:27)
[2020-03-23] MEDS: HYDROCORTISONE SOD SUCCINATE 100 MG/2 ML VIAL IV SCH ×3 (05:15→20:11)
[2020-03-23 07:03] LABS: CALCIUM, SERUM 7.6 mg/dL (8.5-10.1); CREATININE 1.1 mg/dL (0.6-1.3); POTASSIUM 3.4 mmol/L (3.5-5.1)
[2020-03-23] MEDS: DEXAMETHASONE SOD PHOSPHATE 4 MG/ML VIAL IV SCH (08:09)
[2020-03-23] MEDS: ASCORBIC ACID 500 MG TABLET PO SCH (08:10)
[2020-03-23] MEDS: ALLOPURINOL 100 MG TABLET PO SCH (08:10)
[2020-03-23] MEDS: MULTIVIT W/MINERALS 1 TAB TABLET PO SCH (08:10)
[2020-03-23] MEDS: FOLIC ACID 1 MG TABLET PO SCH (08:10)
[2020-03-23] MEDS: APIXABAN 2.5 MG TABLET PO SCH ×2 (08:11→17:00)
[2020-03-23] MEDS ORDERED: POTASSIUM CHLORIDE 20 MEQ TAB.PRT.SR PO SCH (09:00)
[2020-03-23] MEDS ORDERED: MEROPENEM 500 MG in IV NS 0.9% 50 ML IV SCH (09:00)
[2020-03-23] MEDS: MEROPENEM 1 G in IV NS 0.9% 100 ML IV SCH ×2 (09:14→20:08)
[2020-03-23] MEDS: POTASSIUM CHLORIDE 20 MEQ POWDER PACKET PO SCH ×2 (09:14→11:12)
[2020-03-23] MEDS: IV NS 0.9% 1,000 ML IV PRN (16:17)
[2020-03-23] MEDS: TAMSULOSIN 0.4 MG CAP.SR.24H PO SCH (22:39)
[2020-03-24] VITALS (24 sets, daily range): BP systolic 99–140; BP diastolic 57–89
[2020-03-24] MEDS: PHENYLEPHRINE 50 MG in IV NS 0.9% 245 ML IV PRN (04:50)
[2020-03-24] MEDS: HYDROCORTISONE SOD SUCCINATE 100 MG/2 ML VIAL IV SCH ×3 (04:50→20:24)
[2020-03-24 07:30] LABS: CALCIUM, SERUM 7.8 mg/dL (8.5-10.1); POTASSIUM 3.5 mmol/L (3.5-5.1)
[2020-03-24] MEDS: IV NS 0.9% 1,000 ML IV PRN (07:36)
[2020-03-24] MEDS: ALLOPURINOL 100 MG TABLET PO SCH (08:45)
[2020-03-24] MEDS: DEXAMETHASONE SOD PHOSPHATE 4 MG/ML VIAL IV SCH (08:45)
[2020-03-24] MEDS: ASCORBIC ACID 500 MG TABLET PO SCH (08:45)
[2020-03-24] MEDS: MULTIVIT W/MINERALS 1 TAB TABLET PO SCH (08:46)
[2020-03-24] MEDS: APIXABAN 2.5 MG TABLET PO SCH ×2 (08:46→17:36)
[2020-03-24] MEDS: FOLIC ACID 1 MG TABLET PO SCH (08:46)
[2020-03-24] MEDS: MEROPENEM 1 G in IV NS 0.9% 100 ML IV SCH ×2 (08:47→20:03)
[2020-03-24] MEDS: FLUDROCORTISONE 0.1 MG TABLET PO SCH ×3 (12:44→23:01)
[2020-03-24] MEDS: TAMSULOSIN 0.4 MG CAP.SR.24H PO SCH (21:06)
[2020-03-25] VITALS (20 sets, daily range): BP systolic 111–150; BP diastolic 53–96
[2020-03-25] MEDS: IV NS 0.9% 1,000 ML IV PRN ×2 (00:12→19:05)
[2020-03-25] MEDS: HYDROCORTISONE SOD SUCCINATE 100 MG/2 ML VIAL IV SCH ×3 (04:10→20:25)
[2020-03-25] MEDS: FLUDROCORTISONE 0.1 MG TABLET PO SCH ×4 (05:21→23:15)
[2020-03-25 07:01] LABS: CALCIUM, SERUM 7.9 mg/dL (8.5-10.1); CREATININE 0.9 mg/dL (0.6-1.3); POTASSIUM 3.6 mmol/L (3.5-5.1)
[2020-03-25] MEDS: ASCORBIC ACID 500 MG TABLET PO SCH (08:23)
[2020-03-25] MEDS: MEROPENEM 1 G in IV NS 0.9% 100 ML IV SCH ×2 (08:23→20:25)
[2020-03-25] MEDS: FOLIC ACID 1 MG TABLET PO SCH (08:23)
[2020-03-25] MEDS: MULTIVIT W/MINERALS 1 TAB TABLET PO SCH (08:23)
[2020-03-25] MEDS: DEXAMETHASONE SOD PHOSPHATE 4 MG/ML VIAL IV SCH (08:24)
[2020-03-25] MEDS: ALLOPURINOL 100 MG TABLET PO SCH (08:24)
[2020-03-25] MEDS: APIXABAN 2.5 MG TABLET PO SCH ×2 (08:46→16:41)
[2020-03-25] MEDS: METOPROLOL TARTRATE 50 MG TABLET PO SCH ×2 (16:39→20:26)
[2020-03-25] MEDS: TAMSULOSIN 0.4 MG CAP.SR.24H PO SCH (20:26)
[2020-03-26] VITALS: BP 125/57
[2020-03-26 04:00] VITALS: BP 121/83
[2020-03-26] MEDS: FLUDROCORTISONE 0.1 MG TABLET PO SCH ×4 (05:04→23:06)
[2020-03-26] MEDS: HYDROCORTISONE SOD SUCCINATE 100 MG/2 ML VIAL IV SCH ×3 (05:04→17:19)
[2020-03-26 07:06] LABS: BASOPHILS % (AUTO) 0.1 % (0.0-2.0); EOSINOPHILS % (AUTO) 0.1 % (0.0-6.0); HEMATOCRIT 32 % (39-51); HEMOGLOBIN 9.7 g/dL (13.5-17.5); LYMPHOCYTES # (AUTO) 0.4 /CMM (0.8-4.8); LYMPHOCYTES % (AUTO) 8.6 % (20.0-44.0); MEAN CORPUSCULAR HGB CONC 31 g/dl (31.0-36.0); MEAN CORPUSCULAR VOLUME 117 fL (80-96); MONOCYTES # (AUTO) 0.2 /CMM (0.1-1.30); MONOCYTES % (AUTO) 4.1 % (2.0-12.0); NEUTROPHILS # (AUTO) 4.1 /CMM (1.8-8.9); NEUTROPHILS % (AUTO) 87.1 % (43.0-81.0); PLATELET COUNT (AUTO) 180 /CMM (150-450); WHITE BLOOD COUNT (AUTO) 4.7 K/uL (4.3-11.0)
[2020-03-26 07:18] LABS: CALCIUM, SERUM 8.1 mg/dL (8.5-10.1); MAGNESIUM 2.3 mg/dL (1.8-2.4); PHOSPHORUS 2.5 mg/dL (2.5-4.9); POTASSIUM 3.8 mmol/L (3.5-5.1)
[2020-03-26 08:00] VITALS: BP 121/83
[2020-03-26] MEDS: MEROPENEM 1 G in IV NS 0.9% 100 ML IV SCH ×2 (08:18→20:37)
[2020-03-26] MEDS: FOLIC ACID 1 MG TABLET PO SCH (08:18)
[2020-03-26] MEDS: ASCORBIC ACID 500 MG TABLET PO SCH (08:19)
[2020-03-26] MEDS: ALLOPURINOL 100 MG TABLET PO SCH (08:19)
[2020-03-26] MEDS: DEXAMETHASONE SOD PHOSPHATE 4 MG/ML VIAL IV SCH (08:19)
[2020-03-26] MEDS: MULTIVIT W/MINERALS 1 TAB TABLET PO SCH (08:19)
[2020-03-26] MEDS: APIXABAN 2.5 MG TABLET PO SCH ×2 (08:21→17:20)
[2020-03-26] MEDS: METOPROLOL TARTRATE 50 MG TABLET PO SCH ×2 (08:22→20:37)
[2020-03-26 12:00] VITALS: BP 123/68
[2020-03-26 13:43] LABS: ALBUMIN 1.8 g/dL (3.4-5.0); BILIRUBIN,DIRECT 2.9 mg/dL (0.0-0.2); BILIRUBIN,TOTAL 3.3 mg/dL (0.2-1.0); TOTAL PROTEIN, SERUM 5.5 g/dL (6.4-8.2)
[2020-03-26 16:00] VITALS: BP 123/68
[2020-03-26] MEDS: IV NS 0.9% 1,000 ML IV PRN (17:01)
[2020-03-26 20:00] VITALS: BP 123/68
[2020-03-26] MEDS: TAMSULOSIN 0.4 MG CAP.SR.24H PO SCH (20:37)
[2020-03-27] VITALS: BP 110/68
[2020-03-27 04:00] VITALS: BP 122/67
[2020-03-27] MEDS: FLUDROCORTISONE 0.1 MG TABLET PO SCH ×3 (05:13→17:03)
[2020-03-27 06:26] LABS: BASOPHILS % (AUTO) 0.2 % (0.0-2.0); HEMATOCRIT 31 % (39-51); HEMOGLOBIN 10.1 g/dL (13.5-17.5); LYMPHOCYTES # (AUTO) 0.4 /CMM (0.8-4.8); LYMPHOCYTES % (AUTO) 7.5 % (20.0-44.0); MEAN CORPUSCULAR HGB CONC 32 g/dl (31.0-36.0); MEAN CORPUSCULAR VOLUME 111 fL (80-96); MONOCYTES # (AUTO) 0.2 /CMM (0.1-1.30); MONOCYTES % (AUTO) 3.7 % (2.0-12.0); NEUTROPHILS # (AUTO) 4.2 /CMM (1.8-8.9); NEUTROPHILS % (AUTO) 88.6 % (43.0-81.0); PLATELET COUNT (AUTO) 185 /CMM (150-450); RED BLOOD CELL COUNT(AUTO) 2.83 MIL/uL (4.5-6.0); WHITE BLOOD COUNT (AUTO) 4.7 K/uL (4.3-11.0)
[2020-03-27 07:17] LABS: ALBUMIN 1.7 g/dL (3.4-5.0); BILIRUBIN,TOTAL 2.9 mg/dL (0.2-1.0); CALCIUM, SERUM 7.8 mg/dL (8.5-10.1); CREATININE 0.8 mg/dL (0.6-1.3); MAGNESIUM 2.1 mg/dL (1.8-2.4); PHOSPHORUS 2.4 mg/dL (2.5-4.9); POTASSIUM 3.4 mmol/L (3.5-5.1); TOTAL PROTEIN, SERUM 5.1 g/dL (6.4-8.2)
[2020-03-27 08:00] VITALS: BP 127/62
[2020-03-27] MEDS: DEXAMETHASONE SOD PHOSPHATE 4 MG/ML VIAL IV SCH (08:17)
[2020-03-27] MEDS: HYDROCORTISONE SOD SUCCINATE 100 MG/2 ML VIAL IV SCH ×2 (08:18→16:59)
[2020-03-27] MEDS: APIXABAN 2.5 MG TABLET PO SCH ×2 (08:19→16:59)
[2020-03-27] MEDS: FOLIC ACID 1 MG TABLET PO SCH (08:19)
[2020-03-27] MEDS: METOPROLOL TARTRATE 50 MG TABLET PO SCH ×2 (08:19→22:00)
[2020-03-27] MEDS: ASCORBIC ACID 500 MG TABLET PO SCH (08:20)
[2020-03-27] MEDS: MULTIVIT W/MINERALS 1 TAB TABLET PO SCH (08:20)
[2020-03-27] MEDS: MEROPENEM 1 G in IV NS 0.9% 100 ML IV SCH ×2 (08:20→22:00)
[2020-03-27] MEDS: ALLOPURINOL 100 MG TABLET PO SCH (08:20)
[2020-03-27] MEDS ORDERED: POTASSIUM CHLORIDE 20 MEQ POWDER PACKET PO ONE (11:30)
[2020-03-27 12:00] VITALS: BP 130/77
[2020-03-27 16:00] VITALS: BP 128/81
[2020-03-27] MEDS: IV NS 0.9% 1,000 ML IV PRN (16:59)
[2020-03-27 20:00] VITALS: BP 122/77
[2020-03-27] MEDS: TAMSULOSIN 0.4 MG CAP.SR.24H PO SCH (21:59)
[2020-03-28] VITALS: BP 118/73
[2020-03-28] MEDS: FLUDROCORTISONE 0.1 MG TABLET PO SCH ×4 (00:39→17:08)
[2020-03-28 04:00] VITALS: BP 121/73
[2020-03-28 07:08] LABS: CALCIUM, SERUM 7.9 mg/dL (8.5-10.1); CREATININE 0.7 mg/dL (0.6-1.3); POTASSIUM 3.4 mmol/L (3.5-5.1)
[2020-03-28 08:00] VITALS: BP 117/64
[2020-03-28] MEDS: DEXAMETHASONE SOD PHOSPHATE 4 MG/ML VIAL IV SCH (08:43)
[2020-03-28] MEDS: MULTIVIT W/MINERALS 1 TAB TABLET PO SCH (08:43)
[2020-03-28] MEDS: ASCORBIC ACID 500 MG TABLET PO SCH (08:43)
[2020-03-28] MEDS: ALLOPURINOL 100 MG TABLET PO SCH (08:43)
[2020-03-28] MEDS: MEROPENEM 1 G in IV NS 0.9% 100 ML IV SCH ×2 (08:44→20:37)
[2020-03-28] MEDS: HYDROCORTISONE SOD SUCCINATE 100 MG/2 ML VIAL IV SCH ×2 (08:44→17:08)
[2020-03-28] MEDS: FOLIC ACID 1 MG TABLET PO SCH (08:44)
[2020-03-28] MEDS: APIXABAN 2.5 MG TABLET PO SCH ×2 (09:00→17:00)
[2020-03-28] MEDS: METOPROLOL TARTRATE 50 MG TABLET PO SCH ×2 (09:00→21:08)
[2020-03-28] MEDS ORDERED: POTASSIUM CHLORIDE 20 MEQ TAB.PRT.SR PO ONE (10:00)
[2020-03-28 11:15] LABS: ALBUMIN 1.7 g/dL (3.4-5.0); BILIRUBIN,DIRECT 2.1 mg/dL (0.0-0.2); BILIRUBIN,TOTAL 2.6 mg/dL (0.2-1.0); TOTAL PROTEIN, SERUM 4.9 g/dL (6.4-8.2)
[2020-03-28 11:31] LABS: BASOPHILS % (AUTO) 0.2 % (0.0-2.0); HEMATOCRIT 33 % (39-51); HEMOGLOBIN 10.5 g/dL (13.5-17.5); LYMPHOCYTES # (AUTO) 0.5 /CMM (0.8-4.8); LYMPHOCYTES % (AUTO) 9.8 % (20.0-44.0); MEAN CORPUSCULAR HGB CONC 32 g/dl (31.0-36.0); MEAN CORPUSCULAR VOLUME 113 fL (80-96); MONOCYTES # (AUTO) 0.3 /CMM (0.1-1.30); MONOCYTES % (AUTO) 4.9 % (2.0-12.0); NEUTROPHILS # (AUTO) 4.6 /CMM (1.8-8.9); NEUTROPHILS % (AUTO) 85.1 % (43.0-81.0); PLATELET COUNT (AUTO) 187 /CMM (150-450); RED BLOOD CELL COUNT(AUTO) 2.92 MIL/uL (4.5-6.0); WHITE BLOOD COUNT (AUTO) 5.5 K/uL (4.3-11.0)
[2020-03-28 12:00] VITALS: BP 114/67
[2020-03-28] MEDS: IV NS 0.9% 1,000 ML IV PRN (14:00)
[2020-03-28 16:00] VITALS: BP 117/75
[2020-03-28 20:00] VITALS: BP 117/52
[2020-03-28] MEDS: TAMSULOSIN 0.4 MG CAP.SR.24H PO SCH (21:05)
[2020-03-29] VITALS: BP 135/85
[2020-03-29] MEDS: FLUDROCORTISONE 0.1 MG TABLET PO SCH ×3 (00:15→12:17)
[2020-03-29 04:00] VITALS: BP 147/77
[2020-03-29 07:30] LABS: CALCIUM, SERUM 7.6 mg/dL (8.5-10.1); CREATININE 0.7 mg/dL (0.6-1.3); POTASSIUM 3.2 mmol/L (3.5-5.1)
[2020-03-29 08:00] VITALS: BP 130/84
[2020-03-29] MEDS: MEROPENEM 1 G in IV NS 0.9% 100 ML IV SCH (08:06)
[2020-03-29] MEDS: DEXAMETHASONE SOD PHOSPHATE 4 MG/ML VIAL IV SCH (08:07)
[2020-03-29] MEDS: HYDROCORTISONE SOD SUCCINATE 100 MG/2 ML VIAL IV SCH ×2 (08:07→17:01)
[2020-03-29] MEDS: FOLIC ACID 1 MG TABLET PO SCH (08:08)
[2020-03-29] MEDS: ASCORBIC ACID 500 MG TABLET PO SCH (08:08)
[2020-03-29] MEDS: MULTIVIT W/MINERALS 1 TAB TABLET PO SCH (08:08)
[2020-03-29] MEDS: ALLOPURINOL 100 MG TABLET PO SCH (08:08)
[2020-03-29] MEDS: METOPROLOL TARTRATE 50 MG TABLET PO SCH (08:10)
[2020-03-29] MEDS: APIXABAN 2.5 MG TABLET PO SCH ×2 (08:16→17:02)
[2020-03-29] MEDS: POTASSIUM CHLORIDE 20 MEQ TAB.PRT.SR PO SCH ×2 (10:17→11:02)
[2020-03-29] MEDS ORDERED: Folic Acid PO (10:48)
[2020-03-29] MEDS ORDERED: FLUD0.1T3 PO (10:48)
[2020-03-29] MEDS ORDERED: MERO500V21 IV (10:48)
[2020-03-29] MEDS ORDERED: METO50TA16 PO (10:48)
[2020-03-29 10:57] LABS: BASOPHILS % (AUTO) 0.1 % (0.0-2.0); EOSINOPHILS % (AUTO) 0.1 % (0.0-6.0); HEMATOCRIT 33 % (39-51); HEMOGLOBIN 10.6 g/dL (13.5-17.5); LYMPHOCYTES # (AUTO) 0.5 /CMM (0.8-4.8); LYMPHOCYTES % (AUTO) 8.5 % (20.0-44.0); MEAN CORPUSCULAR HGB CONC 32 g/dl (31.0-36.0); MEAN CORPUSCULAR VOLUME 112 fL (80-96); MONOCYTES # (AUTO) 0.3 /CMM (0.1-1.30); MONOCYTES % (AUTO) 4.7 % (2.0-12.0); NEUTROPHILS # (AUTO) 5.2 /CMM (1.8-8.9); NEUTROPHILS % (AUTO) 86.6 % (43.0-81.0); PLATELET COUNT (AUTO) 174 /CMM (150-450); RED BLOOD CELL COUNT(AUTO) 2.98 MIL/uL (4.5-6.0)
[2020-03-29 11:10] LABS: ALBUMIN 1.7 g/dL (3.4-5.0); BILIRUBIN,DIRECT 1.9 mg/dL (0.0-0.2); BILIRUBIN,TOTAL 2.6 mg/dL (0.2-1.0); TOTAL PROTEIN, SERUM 4.8 g/dL (6.4-8.2)
[2020-03-29 12:00] VITALS: BP 94/57
[2020-03-29 13:32] LABS: LYMPHOCYTES % (MANUAL) 9 % (16-48); MONOCYTES % (MANUAL) 4 % (0-11.0); NEUTROPHILS % (MANUAL) 87 (42-76)
[2020-03-29] MEDS: IV NS 0.9% 1,000 ML IV PRN (13:37)
[2020-03-29 16:00] VITALS: BP 113/46
== END 2020-03-29 17:31 | DRG 871 ==
LOC: ER 12:07 → TRANSITION 18:22 → ICU 03-20 17:06 → ICUOV 03-21 15:01 → TELE1 03-25 15:45
PROVIDERS: ADMIT Nurse Practitioner Acute Care; ATTEND Nurse Practitioner Acute Care
PROC: 02HV33Z Insertion of Infusion Device into Superior Vena Cava, Percutaneous Approach (ICD-10-PCS; principal; 2020-03-20)
PROC: B548ZZA Ultrasonography of Superior Vena Cava, Guidance (ICD-10-PCS; 2020-03-20)
DX: A41.89 Other specified sepsis (principal); U07.1 COVID-19; E43 Unspecified severe protein-calorie malnutrition; G93.41 Metabolic encephalopathy; I50.23 Acute on chronic systolic (congestive) heart failure; R53.2 Functional quadriplegia; R65.21 Severe sepsis with septic shock; N17.0 Acute kidney failure with tubular necrosis; K83.1 Obstruction of bile duct; I13.0 Hypertensive heart and chronic kidney disease with heart failure and stage 1 through stage 4 chronic kidney disease, or unspecified chronic kidney disease; N39.0 Urinary tract infection, site not specified; E87.2 Acidosis; I48.20 Chronic atrial fibrillation, unspecified; J98.11 Atelectasis; R64 Cachexia; Z16.12 Extended spectrum beta lactamase (ESBL) resistance; E27.40 Unspecified adrenocortical insufficiency; E86.0 Dehydration; N18.9 Chronic kidney disease, unspecified; D53.9 Nutritional anemia, unspecified; Z79.01 Long term (current) use of anticoagulants; Z79.899 Other long term (current) drug therapy; Z95.1 Presence of aortocoronary bypass graft; I25.10 Atherosclerotic heart disease of native coronary artery without angina pectoris; F03.90 Unspecified dementia, unspecified severity, without behavioral disturbance, psychotic disturbance, mood disturbance, and anxiety; D52.9 Folate deficiency anemia, unspecified; E88.09 Other disorders of plasma-protein metabolism, not elsewhere classified; M62.81 Muscle weakness (generalized); K74.60 Unspecified cirrhosis of liver; N40.1 Benign prostatic hyperplasia with lower urinary tract symptoms; F29 Unspecified psychosis not due to a substance or known physiological condition; R26.9 Unspecified abnormalities of gait and mobility; N13.9 Obstructive and reflux uropathy, unspecified; B96.20 Unspecified Escherichia coli [E. coli] as the cause of diseases classified elsewhere; Z68.24 Body mass index [BMI] 24.0-24.9, adult
CPT/HCPCS: 36415; 36569; 71045-TC; 76700-TC; 80048-TC; 80053-TC; 80061-TC; 80076-TC; 80162-TC; 81001; 82040-TC; 82140-TC; 82533; 82570-TC; 82728-TC; 83540-TC; 83605-TC; 83735-TC; 84100-TC; 84155-TC; 84300-TC; 84439-TC; 84443-TC; 84484-TC; 85025-TC; 85730-TC; 87040-TC; 87081-TC; 87086-TC; 87186-TC; 93307-TC; A6253; C1751; G0378; J1100; J1160; J1720; J2185; J2370; J2543; J3370; J3490; J7030; J7050; J7060; U0003

== ENCOUNTER 2020-04-15 10:27 | Inpatient (IN) | payer MEDICARE, OTHER ==
[2020-04-15] VITALS (45 sets, daily range): BP systolic 38–132; BP diastolic 19–97
[~2020-04-15] VITALS: Ht 182.9 cm; Wt 72.6 kg
[~2020-04-15 10:27] MED LIST changes: -ASCO500C17 PO; +ASCO500T10 PO; -ASPI-1169 PO; -DEXA10VI2 PO; +FLUD0.1T3 PO; -FURO-144 PO; +Folic Acid PO; +MERO500V21 IV; -METO-295 PO; -METO25TA6 PO; +METO50TA16 PO; -POTA20TA83 PO; -QUET25TA PO; -TUMERIC PO
--- NOTE | 2020-04-15 10:27 | NUR ---
LAYNE EEMRSON From [facility] "More Altered than usual, LOW O2 sat" PT IS AAOX0, NOTED INCREASED RESPIRATION, HOOKED TO COMMUNITY REPRESENTATIVE AND O2 AT 5LPM VIA NC. KEPT RESTED AND COMFORTABLE. WILL CONTINUE TO MONITOR.
--- NOTE | 2020-04-15 10:50 | NUR ---
SEEN AND EXAMINED BY .
--- NOTE | 2020-04-15 10:55 | NUR ---
PT IV LINE ESTABLISHED BLOOD DRAWN AND SENT TO LAB.
[2020-04-15] MEDS ORDERED: IV NS 0.9% 500 ML BAG IV ONE (11:00)
[2020-04-15] MEDS ORDERED: CEFEPIME 1 GM in IV D5W 50 ML IV ONE (11:00)
[2020-04-15] MEDS ORDERED: PHENYLEPHRINE 10 MG/ML VIAL ONE (11:06)
[2020-04-15 11:10] LABS: BASOPHILS # (AUTO) 0.3 /CMM (0.0-0.2); BASOPHILS % (AUTO) 3.3 % (0.0-2.0); EOSINOPHILS % (AUTO) 0.2 % (0.0-6.0); HEMATOCRIT 33 % (39-51); LYMPHOCYTES # (AUTO) 0.6 /CMM (0.8-4.8); LYMPHOCYTES % (AUTO) 7.3 % (20.0-44.0); MEAN CORPUSCULAR HGB CONC 33 g/dl (31.0-36.0); MEAN CORPUSCULAR VOLUME 103 fL (80-96); MONOCYTES # (AUTO) 0.3 /CMM (0.1-1.30); MONOCYTES % (AUTO) 4.6 % (2.0-12.0); NEUTROPHILS # (AUTO) 6.4 /CMM (1.8-8.9); NEUTROPHILS % (AUTO) 84.6 % (43.0-81.0); PLATELET COUNT (AUTO) 317 /CMM (150-450); RED BLOOD CELL COUNT(AUTO) 3.23 MIL/uL (4.5-6.0); WHITE BLOOD COUNT (AUTO) 7.6 K/uL (4.3-11.0)
[2020-04-15 11:17] LABS: CALCIUM, SERUM 7.7 mg/dL (8.5-10.1); CREATININE 1.2 mg/dL (0.6-1.3); POTASSIUM 4.1 mmol/L (3.5-5.1)
[2020-04-15 11:22] LABS: BILIRUBIN,DIRECT 1.3 mg/dL (0.0-0.2); BILIRUBIN,TOTAL 1.7 mg/dL (0.2-1.0); BILIRUBIN,URINE MODERATE (NEGATIVE); COLOR,URINE DARK YELLOW (YELLOW); LEUKOCYTE ESTERASE ,URINE Large (NEGATIVE); NITRITE, URINE Negative (NEGATIVE); PROTEIN,URINE 100 mg/dl (NEGATIVE); TOTAL PROTEIN, SERUM 4.4 g/dL (6.4-8.2); UGLUCOSE Negative (NEGATIVE)
[2020-04-15 11:24] LABS: ALBUMIN 1.1 g/dL (3.4-5.0)
--- NOTE | 2020-04-15 11:27 | NUR ---
[facility] CALLED BEVEL FACE STONER AND POLISHER PAGED. MICHAEL
[2020-04-15 11:28] LABS: BACTERIA,URINE 2+ /HPF (None Seen); RBC,URINE 21-50 /HPF (0-2); SQUAMOUS EPITHELIAL CELL,UR Few /HPF (None Seen); WBC,URINE 21-50 /HPF (0-3)
[2020-04-15] MEDS ORDERED: PHENYLEPHRINE 10 MG/ML VIAL IV ONE (11:30)
[2020-04-15] MEDS ORDERED: IV NS 0.9% 1,000 ML BAG IV ONE (11:30)
--- NOTE | 2020-04-15 11:38 | NUR ---
MOVE SHEET SUBMITTED AND CALLED FOR ICU BED.
--- NOTE | 2020-04-15 11:43 | NUR ---
CALLED PHARMACY FOR IV ANTIBIOTIC.
[2020-04-15 11:46] LABS: B-TYPE NATRIURETIC PEPTIDE 17515 PG/ML (0-125)
[2020-04-15] MEDS ORDERED: NOREPINEPHRINE 8 MG in IV NS 0.9% 242 ML IV PRN (12:00)
[2020-04-15] MEDS ORDERED: VANCOMYCIN 1 GM in IV D5W 250 ML IV ONE (12:00)
[2020-04-15 12:03] LABS: SERUM AMMONIA 13 umol/L (11-32)
--- NOTE | 2020-04-15 12:15 | NUR ---
ROOM GIVEN ICU 260.
--- NOTE | 2020-04-15 12:27 | NUR ---
[facility] CONTACT #[phone]
[2020-04-15] MEDS ORDERED: MAG HYDROX/AL HYDROX/SIMETH 30 ML UDC PO PRN (12:30)
[2020-04-15] MEDS ORDERED: Z GUARD REMEDY 2 OZ OINT TP PRN (12:30)
[2020-04-15] MEDS ORDERED: IV NS 0.9% 1,000 ML IV PRN (12:30)
[2020-04-15] MEDS ORDERED: ACETAMINOPHEN 325 MG TABLET PO PRN (12:30)
[2020-04-15] MEDS ORDERED: BISACODYL SUPP (10 MG) 10 MG/SUPP.RECT SUPP.RECT RC PRN (12:30)
[2020-04-15] MEDS ORDERED: HYDROCODONE/APAP 5/325MG TABLET PO PRN (12:30)
[2020-04-15] MEDS ORDERED: MAGNESIUM HYDROXIDE 30 ML UDC PO PRN ×2 (12:30)
[2020-04-15] MEDS ORDERED: NA PHOS,M-B/NA PHOS,DI-BA 1 EA ENEMA RC PRN (12:30)
[2020-04-15] MEDS ORDERED: ONDANSETRON HCL/PF 4 MG/2 ML VIAL IVP PRN (12:30)
[2020-04-15] MEDS ORDERED: ZOLPIDEM TARTRATE 5 MG TABLET PO PRN (12:30)
--- NOTE | 2020-04-15 12:30 | NUR ---
COVID SPECIMEN COLLECTED AND SENT TO LAB.
--- NOTE | 2020-04-15 12:33 | NUR ---
REPORT GIVEN TO FAYE BURKETT OF ICU FOR RULA. WITH ONGOING IV ANTIBIOTIC AND LEVOPHED.
--- NOTE | 2020-04-15 13:00 | NUR ---
RN INITIAL NOTES RECEIVED PT FROM ER. PT OPEN EYES,MOVES TO PAIN, MAKE INCOMPREHENSIBLE SOUNDS. ON 02 VIA NC AT 5LPM. NO RESPIRATORY DISTRESS NOTED. HOB ELEVATED. CONNECTED TO MONITOR, UNCONTROLLED A.FIB. LEVO INFUSING AT 1MCG/KG/MIN, STARTED FROM ER. CRAIN IN PLACE FROM SNF. SKIN ASSESSMENT DONE. PICTURES TAKEN AND PLACED IN CHART. DR RODRIGUEZ AWARE, AWAITING FOR ORDERS. WILL CLOSELY MONITOR
[2020-04-15] MEDS ORDERED: PHENYLEPHRINE 100 MG in IV NS 0.9% 240 ML IV PRN (13:30)
[2020-04-15] MEDS ORDERED: NOREPINEPHRINE 32 MG in IV NS 0.9% 218 ML IV PRN (13:30)
[2020-04-15] MEDS: NOREPINEPHRINE 32 MG in IV NS 0.9% 250 ML IV PRN ×2 (14:06→21:23)
[2020-04-15 15:11] LABS: BILIRUBIN,DIRECT 1.6 mg/dL (0.0-0.2); BILIRUBIN,TOTAL 1.8 mg/dL (0.2-1.0); TOTAL PROTEIN, SERUM 4.2 g/dL (6.4-8.2)
[2020-04-15] MEDS ORDERED: APIXABAN 2.5 MG TABLET PO SCH (17:00)
[2020-04-15] MEDS ORDERED: PROSTAT (PYXIS) 30 ML UDC PO SCH (17:00)
[2020-04-15] MEDS ORDERED: FLUDROCORTISONE 0.1 MG TABLET PO SCH (18:00)
--- NOTE | 2020-04-15 18:50 | NUR ---
RN CLOSING NOTES NO SIGNIFICANT CHANGE NOTED. OPEN EYES, MOVES TO PAIN. REMAINS ON NC. HOB ELEVATED. UNCONTROLLED AFIB ON MONITOR, HR 160S. DR RODRIGUEZ NOTIFIED. PT HAS NO MED FOR A.FIB. LACTIC ACID 2.4, ON IVF. PT ON LEVO AT 2MCG/KG/MIN. BREANN IN PLACE. WILL ENDORSE FOR CONTINUITY OF CARE.
[2020-04-15] MEDS ORDERED: METOPROLOL TARTRATE INJ 5 MG/5 ML AMPUL IVP PRN (19:00)
--- NOTE | 2020-04-15 19:10 | NUR ---
RN OPENING NOTES: Rec'd pt in bed. Pt opens eyes and moves to pain. On 5LPM NC tolerating well. No SOB or resp distress noted at this time. A fib uncontrolled on tele monitor. PAULO PICC line patent and infusing Levo at 0.1mcg/kg/min. Will titrate per protocol. Dang catheter in place patent and draining urine via gravity. Safety measures in place. Will continue to monitor.
[2020-04-15] MEDS ORDERED: METOPROLOL TARTRATE INJ 5 MG/5 ML AMPUL IVP ONE (20:00)
--- NOTE | 2020-04-15 20:37 | NUR ---
WATER CHASER NOTE: Pt noted to have 11 beats of vtach. HR was in 150s. Changed Levo to Ozzie will continue to monitor.
[2020-04-15] MEDS ORDERED: METOPROLOL TARTRATE 50 MG TABLET PO SCH (21:00)
[2020-04-15] MEDS ORDERED: CEFEPIME 2 GM in IV D5W 100 ML IV SCH (21:00)
[2020-04-15] MEDS ORDERED: VASOPRESSIN INJ 20 UNIT/ML VIAL ONE (21:51)
[2020-04-15] MEDS ORDERED: TAMSULOSIN 0.4 MG CAP.SR.24H PO SCH (22:00)
[2020-04-15] MEDS ORDERED: VASOPRESSIN INJ 40 UNIT in IV NS 0.9% 38 ML IV PRN (22:00)
[2020-04-15] MEDS ORDERED: MORPHINE SULFATE INJ 4 MG/ML DISP.SYRIN ONE (22:38)
[2020-04-15] MEDS ORDERED: LORAZEPAM INJ 2 MG/ML VIAL ONE (22:38)
[2020-04-15] MEDS: MORPHINE SULFATE INJ 4 MG/ML DISP.SYRIN IV PRN ×2 (22:42→23:51)
[2020-04-15] MEDS: LORAZEPAM INJ 2 MG/ML VIAL IV PRN ×2 (22:42→23:35)
--- NOTE | 2020-04-15 22:58 | NUR ---
PEARL DIGGER NOTE: 2024: Pt's HR in 140-150s. Changed Levo to Ozzie. 2122: Pt's BP dropped, restarted pt on Levo. 2133: Ed, charge nurse and FAYE Rivera spoke w/ pt's family who decided to change pt's code status to DNR. 2150: Pt's BP continues to drop. Dr. Galvin paged w/ new order for Vasopressin. Noted and carried out. 2239: Pt's family in unit and decided to change pt's status to comfort measures only. Dr. Galvin made aware of family's wishes. New orders received to for Morphine and Ativan. Orders noted and carried out. Code status changed.
[2020-04-16] VITALS (33 sets, daily range): BP systolic 32–41; BP diastolic 16–30
[2020-04-16] MEDS: MORPHINE SULFATE INJ 4 MG/ML DISP.SYRIN IV PRN ×4 (00:47→04:42)
[2020-04-16] MEDS: LORAZEPAM INJ 2 MG/ML VIAL IV PRN ×4 (00:48→04:42)
[2020-04-16] MEDS ORDERED: LORAZEPAM INJ 2 MG/ML VIAL ONE (06:15)
--- NOTE | 2020-04-16 06:50 | NUR ---
PLATFORM WORKER NOTE: Pt at 0617. Final dx: cardiopulmonary arrest. Family called. [facility] [employer] called. Body cleaned and bagged.
[2020-04-16] MEDS ORDERED: ASCORBIC ACID 500 MG TABLET PO SCH (09:00)
[2020-04-16] MEDS ORDERED: FOLIC ACID 1 MG TABLET PO SCH (09:00)
[2020-04-16] MEDS ORDERED: MULTIVIT W/MINERALS 1 TAB TABLET PO SCH (09:00)
[2020-04-16] MEDS ORDERED: ALLOPURINOL 100 MG TABLET PO SCH (09:00)
== END 2020-04-16 06:17 | disposition expired | DRG 871 ==
LOC: ER 10:29 → ICU 12:27
PROVIDERS: ADMIT Family Medicine; ATTEND Family Medicine
PROC: 05HY33Z Insertion of Infusion Device into Upper Vein, Percutaneous Approach (ICD-10-PCS; principal; 2020-04-15)
DX: A41.9 Sepsis, unspecified organism (principal); G93.41 Metabolic encephalopathy; I50.23 Acute on chronic systolic (congestive) heart failure; N17.0 Acute kidney failure with tubular necrosis; K72.00 Acute and subacute hepatic failure without coma; E43 Unspecified severe protein-calorie malnutrition; N39.0 Urinary tract infection, site not specified; I13.0 Hypertensive heart and chronic kidney disease with heart failure and stage 1 through stage 4 chronic kidney disease, or unspecified chronic kidney disease; R65.20 Severe sepsis without septic shock; N18.9 Chronic kidney disease, unspecified; N40.0 Benign prostatic hyperplasia without lower urinary tract symptoms; I25.10 Atherosclerotic heart disease of native coronary artery without angina pectoris; Z79.899 Other long term (current) drug therapy; K74.60 Unspecified cirrhosis of liver; D63.8 Anemia in other chronic diseases classified elsewhere; E80.6 Other disorders of bilirubin metabolism; E86.1 Hypovolemia; F03.90 Unspecified dementia, unspecified severity, without behavioral disturbance, psychotic disturbance, mood disturbance, and anxiety; I48.0 Paroxysmal atrial fibrillation; Z79.01 Long term (current) use of anticoagulants
CPT/HCPCS: 36415; 36569; 71045-TC; 80048-TC; 80076-TC; 81001; 82140-TC; 83605-TC; 83690-TC; 83880; 84484-TC; 85025-TC; 85730-TC; 87040-TC; 87081-TC; 87086-TC; 87186-TC; C1751; G0378; J0692; J2060; J2270; J2370; J3370; J3490; J7030; J7050; J7060; U0003